=== PATIENT | female | born 1950 | race Caucasian/White ===

== ENCOUNTER 2016-06-16 17:24 | Emergency (ER) | payer MEDICARE ==
[~2016-06-16] VITALS: Ht 160 cm; Wt 65.8 kg
[2016-06-16] MEDS ORDERED: CHLO25TA22 (17:57)
[2016-06-16] MEDS ORDERED: DOXE10CA29 (17:57)
[2016-06-16] MEDS ORDERED: LEVO150T6 (17:57)
[2016-06-16] MEDS ORDERED: INSU100V6 (17:57)
[2016-06-16] MEDS ORDERED: ENAL20TA (17:57)
[2016-06-16] MEDS ORDERED: D50KC (17:57)
[2016-06-16] MEDS ORDERED: FLUO20TA28 (17:57)
[2016-06-16] MEDS ORDERED: AMLO5TAB2 (17:57)
[2016-06-16] MEDS ORDERED: [UNRECOGNIZED DRUG - CODE] (17:57)
[2016-06-16] MEDS ORDERED: METO-333 (17:57)
[2016-06-16] MEDS ORDERED: OXYB5TAB9 (17:57)
[2016-06-16 18:19] LABS: BASOPHILS % (AUTO) 0 % (0-10); EOSINOPHILS # (AUTO) 0.1 10^3/uL (0.0-0.3); EOSINOPHILS % (AUTO) 1 % (0-10); LYMPHOCYTES # (AUTO) 3.2 X 10^3 (1.0-4.0); LYMPHOCYTES % (AUTO) 44 % (12-44); MEAN CORPUSCULAR HEMOGLOBIN 31 PG (25-34); MEAN CORPUSCULAR HGB CONC 35 G/DL (32-36); MEAN CORPUSCULAR VOLUME 90 FL (80-99); MONOCYTES # (AUTO) 0.6 X 10^3 (0.0-1.0); MONOCYTES % (AUTO) 8 % (0-12); NEUTROPHILS # (AUTO) 3.4 X 10^3 (1.8-7.8); NEUTROPHILS % (AUTO) 46 % (42-75); PLATELET COUNT 378 10^3/uL (130-400); RED BLOOD COUNT 4.33 10^6/uL (4.35-5.85); WHITE BLOOD COUNT 7.3 10^3/uL (4.3-11.0)
[2016-06-16 18:22] LABS: PROTHROMBIN TIME PATIENT 12.5 SEC (12.2-14.7)
--- NOTE | 2016-06-16 18:28 | ED General ---
General Chief Complaint: Dizziness/Syncope Stated Complaint: DIZZINESS,POSSIBLE LOW BLOOD SUGAR Nursing Triage Note: PT REPORTS SHE STARTED FEELING WEAK AND LIGHTHEADED APROX 4 HRS AGO. PT REPORTS SHE HAS HAD TROUBLE WITH HIGH BLOOD PRESSURE X 2 MONTHS AND HER PRIMARY DR IS CURRENTLY ADJUSTING HER MEDICATIONS. PT ALSO REPORTS SHE ATE A CANDY BAR AND ICE CREAM GLASS CALIBRATOR INCASE OF LOW BS. Nursing Sepsis Screen: No Definite Risk Source of Information: Patient History of Present Illness Time Seen by Provider: 18:00 Initial Comments PT ARRIVES VIA POV--DROVE SELF HERE STATES SHE "FELT WEIRD ALL DAY" "JUST FEELING BAD" "TIRED" --PT UNABLE TO ELABORATE ON HOW SHE FEELS "BAD"--JUST FEELS WEAK AND A LITTLE LIGHTHEADED STATES SHE LIVES IN [place] AND DROVE HERE TODAY TO VISIT HER MOTHER STATES SHE WAS AT THE STORE AND "JUST FELT REALLY BAD" STATES IT FELT LIKE HER BLOOD SUGAR WAS LOW--HAS NOT CHECKED HER BLOOD SUGAR TODAY, BUT ATE CANDY BAR AND ICE CREAM GLASS CALIBRATOR, AND FEELS A LITTLE BETTER. PT STATES SHE HAS BEEN EATING AND DRINKING TODAY, BUT NOT MUCH USUAL NO CHEST PAIN NO SHORTNESS OF BREATH NO PALPITATIONS NO HEADACHE NO VISION CHANGES, BUT DID WAKE UP THIS AM WITH SUBCONJUNCTIVAL BLEED TO MEDIAL ASPECT OF LEFT EYE--NO EYE PAIN, NO KNOWN INJURY NO NAUSEA/VOMITING/DIARRHEA OR ABDOMINAL PAIN NO URINARY SYMPTOMS NO URI SYMPTOMS PT STATES HER BP HAS BEEN WELL CONTROLLED FOR YEARS ON THE SAME MEDICATIONS AND DOSAGES, BUT THE LAST 2 MONTHS HAS BECOME VERY HIGH AND HER DR HAS MORE THAN DOUBLED HER MEDICATIONS IN THE LAST SEVERAL WEEKS--LAST ADJUSTMENT WAS 2-3 WEEKS AGO. Allergies and Home Medications Allergies Coded Allergies: metronidazole (Verified Allergy, Unknown, 06/16/16) Home Medications Amlodipine Besylate 5 Mg Tablet, #120 (Reported) Chlorthalidone 25 Mg Tablet, #30 (Reported) Doxepin HCl 10 Mg Capsule, #10 (Reported) Enalapril Maleate 20 Mg Tablet, #180 (Reported) Ergocalciferol (Vitamin D2) 50,000 Unit Capsule, #12 (Reported) Fluoxetine HCl 20 Mg Tablet, #90 (Reported) Insulin Glargine,Hum.rec.anlog 100 Unit/1 Ml Vial, #10 (Reported) Levothyroxine Sodium 150 Mcg Tablet, #90 (Reported) Metoprolol Tartrate 25 Mg Tablet, #120 (Reported) Oxybutynin Chloride 5 Mg Tablet, #180 (Reported) Constitutional: see HPI, No chills, No diaphoresis, dizziness, No fever, malaise, weakness EENTM: see HPI, No blurred vision, No double vision, No ear pain, No eye pain, No nose congestion, No throat pain Respiratory: no symptoms reported, No cough, No dyspnea on exertion, No orthopnea, No short of breath, No wheezing Cardiovascular: no symptoms reported, No chest pain, No edema, No palpitations , No syncope, No vascular heart diseas Gastrointestinal: no symptoms reported, No abdominal pain, No diarrhea, No loss of appetite, No nausea, No vomiting Genitourinary: no symptoms reported Musculoskeletal: no symptoms reported, No back pain, No neck pain Skin: no symptoms reported Psychiatric/Neurological: No Symptoms Reported, Denies Headache, Denies Numbness, Denies Paresthesia, Denies Seizure, Denies Tingling, Denies Tremors, Denies Weakness Hematologic/Lymphatic: No Symptoms Reported Immunological/Allergic: no symptoms reported Past Hperrft-Cwrofg-Zzkypo Hx Patient Social History Alcohol Use: Occasionally Uses Recreational Drug Use: No Smoking Status: Former Smoker (1 PPD, QUIT 1990) Type Used: Cigarettes Former Smoker/When Quit: Mar 27, 1990 Recent Foreign Travel: No Contact w/Someone Who Travel: No Recent Infectious Disease Expo: No Recent Hopitalizations: No Surgeries HX Surgeries: Yes (BPD ( BILIARY/PANCREATIC DIVERSION ) --INTESTINAL BYPASS FOR WEIGHT LOSS/BARIATRIC SURGERY, L KNEE, DNC) Surgeries: Abdominal, Appendectomy, Gallbladder, Tonsillectomy Respiratory Hx Respiratory Disorders: No Cardiovascular Hx Cardiac Disorders: Yes (PVC'S) Cardiac Disorders: Hypertension Neurological Hx Neurological Disorders: No Reproductive System Hx Reproductive Disorders: 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 Genitourinary Hx Genitourinary Disorders: Yes (BLADDER CONTROL ISSUES) Gastrointestinal Hx Gastrointestinal Disorders: No (INTESTINAL BYPASS) Musculoskeletal Hx Musculoskeletal Disorders: No Endocrine Hx Endocrine Disorders: Yes Endocrine Disorders: Diabetes, Insulin dep, Hypothyroidsim HEENT HX ENT Disorders: No Cancer Hx Cancer: No Psychosocial Hx Psychiatric Problems: Yes Behavioral Health Disorders: Anxiety, Depression Integumentary HX Skin/Integumentary Disorder: No Blood Transfusions Hx Blood Disorders: No Physical Exam Vital Signs Vital Sign - Last 12Hours 06/16/16 17:49 Temp 97.3 Pulse 62 Resp 18 B/P (MAP) 185/108 Pulse Ox 96 Capillary Refill : Less Than 3 Seconds General Appearance: No Apparent Distress, WD/WN HEENT: PERRL/EOMI, TMs Normal, Normal ENT Inspection, Pharynx Normal Neck: Full Range of Motion, Normal Inspection, Non Tender, Supple, No Carotid Bruit, No JVD Respiratory: Normal Breath Sounds, No Accessory Muscle Use, No Respiratory Distress Cardiovascular: Regular Rate, Rhythm, No Edema, No JVD, No Murmur, Normal Peripheral Pulses Gastrointestinal: Normal Bowel Sounds, No Organomegaly, No Pulsatile Mass, Non Tender, Soft Back: Normal Inspection, No CVA Tenderness, No Vertebral Tenderness Extremity: Normal Capillary Refill, Normal Inspection, Normal Range of Motion, Non Tender, No Calf Tenderness, No Pedal Edema Neurologic/Psychiatric: Alert, Oriented x3, No Motor/Sensory Deficits, Normal Mood/Affect, senior account executive II-XII Norm as Tested Skin: Normal Color, Warm/Dry Progress/Results/Core Measures Results/Orders Lab Results Laboratory Tests Test 06/16/16 17:33 06/16/16 17:40 06/16/16 19:03 Range/Units Glucometer 94 70-110 MG/DL White Blood Count 7.3 4.3-11.0 10^3/uL Red Blood Count 4.33 L 4.35-5.85 10^6/uL Hemoglobin 13.4 11.5-16.0 G/DL Hematocrit 39 35-52 % Mean Corpuscular Volume 90 80-99 FL Mean Corpuscular Hemoglobin 31 25-34 PG Mean Corpuscular Hemoglobin Concent 35 32-36 G/DL Red Cell Distribution Width 12.0 10.0-14.5 % Platelet Count 378 130-400 10^3/uL Mean Platelet Volume 10.0 7.4-10.4 FL Neutrophils (%) (Auto) 46 42-75 % Lymphocytes (%) (Auto) 44 12-44 % Monocytes (%) (Auto) 8 0-12 % Eosinophils (%) (Auto) 1 0-10 % Basophils (%) (Auto) 0 0-10 % Neutrophils # (Auto) 3.4 1.8-7.8 X 10^3 Lymphocytes # (Auto) 3.2 1.0-4.0 X 10^3 Monocytes # (Auto) 0.6 0.0-1.0 X 10^3 Eosinophils # (Auto) 0.1 0.0-0.3 10^3/uL Basophils # (Auto) 0.0 0.0-0.1 10^3/uL Prothrombin Time 12.5 12.2-14.7 SEC INR Comment 1.0 0.8-1.4 Activated Partial Thromboplast Time 28 24-35 SEC Sodium Level 138 135-145 MMOL/L Potassium Level 3.5 L 3.6-5.0 MMOL/L Chloride Level 104 98-107 MMOL/L Carbon Dioxide Level 24 21-32 MMOL/L Anion Gap 10 5-14 MMOL/L Blood Urea Nitrogen 13 7-18 MG/DL Creatinine 0.80 0.60-1.30 MG/DL Estimat Glomerular Filtration Rate > 60 BUN/Creatinine Ratio 16 Glucose Level 101 70-105 MG/DL Calcium Level 8.7 8.5-10.1 MG/DL Magnesium Level 1.8 1.8-2.4 MG/DL Total Bilirubin 0.8 0.1-1.0 MG/DL Aspartate Amino Transf (AST/SGOT) 50 H 5-34 U/L Alanine Aminotransferase (ALT/SGPT) 45 0-55 U/L Alkaline Phosphatase 132 40-136 U/L Total Creatine Kinase 76 29-168 U/L Creatine Kinase MB 1.5 <6.6 NG/ML Troponin I < 0.30 <0.30 NG/ML B-Type Natriuretic Peptide 181.9 H <100.0 PG/ML Total Protein 6.2 L 6.4-8.2 G/DL Albumin 3.6 3.2-4.5 G/DL Amylase Level 32 25-125 U/L Lipase < 4 L 8-78 U/L TSH [place] Testing 3.23 0.35-4.94 UIU/ML Urine Color YELLOW Urine Clarity SLIGHTLY CLOUDY Urine pH 5 5-9 Urine Specific [place] 1.010 L 1.016-1.022 Urine Protein 2+ H NEGATIVE Urine Glucose (UA) NEGATIVE NEGATIVE Urine Ketones NEGATIVE NEGATIVE Urine Nitrite POSITIVE H NEGATIVE Urine Bilirubin NEGATIVE NEGATIVE Urine Urobilinogen NORMAL NORMAL MG/DL Urine Leukocyte Esterase 2+ H NEGATIVE Urine RBC (Auto) 2+ H NEGATIVE Urine RBC NONE /HPF Urine WBC 25-50 H /HPF Urine Squamous Epithelial Cells 0-2 /HPF Urine Crystals NONE /LPF Urine Bacteria MODERATE H /HPF Urine Casts NONE /LPF Urine Mucus NEGATIVE /LPF Urine Culture Indicated YES My Orders Orders - BEATA TIDWELL DO Accucheck Stat ONCE (06/16/16 18:12) Saline Lock/Iv-Start (06/16/16 18:12) Ekg Tracing (06/16/16 18:12) Monitor-Rhythm Ecg Trace Only (06/16/16 18:12) Ct Head Wo (06/16/16 18:12) Amylase (06/16/16 18:12) BNP (06/16/16 18:12) Cbc With Automated Diff (06/16/16 18:12) Comprehensive Metabolic Panel (06/16/16 18:12) Creatine Kinase (06/16/16 18:12) Creatine Kinase Mb (06/16/16 18:12) Lipase (06/16/16 18:12) Magnesium (06/16/16 18:12) Protime With Inr (06/16/16 18:12) Partial Thromboplastin Time (06/16/16 18:12) Thyroid Analyzer (06/16/16 18:12) Troponin I (06/16/16 18:12) Ua Culture If Indicated (06/16/16 18:12) Chest Pa/Lat (2 View) (06/16/16 18:12) Urine Culture (06/16/16 19:03) Vital Signs/I&O Vital Sign - Last 12Hours 06/16/16 17:49 Temp 97.3 Pulse 62 Resp 18 B/P (MAP) 185/108 Pulse Ox 96 Blood Pressure Mean: 133 Diagnostic Imaging Comments ACUTE ABDOMEN XRAYS--NON-SPECIFIC BOWEL GAS PATTERN, POSSIBLE ENTERITIS CT HEAD--NO ACUTE PROCESS, CHRONIC APPEARING CHANGES PER RADIOLOGIST REPORTS @ 1925 Reviewed: Reviewed by Me Departure Impression Impression: Primary Impression: UTI (urinary tract infection) Additional Impression: IDDM (insulin dependent diabetes mellitus) Disposition: 01 HOME, SELF-CARE Condition: Stable Departure-Patient Inst. Referrals: NO,LOCAL PHYSICIAN (PCP/Family) Primary Care Physician Patient Instructions: Sick Day Management for Diabetics, Urinary Tract Infection, Adult (DC) Add. Discharge Instructions: LOTS OF CLEAR LIQUIDS--NO COFFEE, POP OR TEA CHECK YOUR BLOOD SUGAR 3 TIMES A DAY BEFORE EACH MEAL TAKE YOUR MEDICATIONS PRESCRIBED FOLLOW UP WITH YOUR DR NEXT WEEK FOR RECHECK RETURN TO ER IF SYMPTOMS WORSEN All discharge instructions reviewed with patient and/or family. Voiced understanding. Scripts Nitrofurantoin Monohyd/M-Cryst (Macrobid 100 mg Capsule) 100 Mg Capsule 100 MG PO BID, #20 CAP Prov: BEATA TIDWELL DO 06/16/16 BEATA TIDWELL DO Jun 16, 2016 18:28
[2016-06-16 18:34] LABS: ALANINE AMINOTRANSFERASE 45 U/L (0-55); ALBUMIN 3.6 G/DL (3.2-4.5); AMYLASE 32 U/L (25-125); ANION GAP 10 MMOL/L (5-14); ASPARTATE AMINO TRANSFERASE 50 U/L (5-34); BILIRUBIN,TOTAL 0.8 MG/DL (0.1-1.0); BLOOD UREA NITROGEN 13 MG/DL (7-18); BUN/CREATININE RATIO 16; CALCIUM 8.7 MG/DL (8.5-10.1); CARBON DIOXIDE 24 MMOL/L (21-32); CHLORIDE 104 MMOL/L (98-107); CREATINE KINASE 76 U/L (29-168); GFR ESTIMATED > 60; GLUCOSE 101 MG/DL (70-105); LIPASE < 4 U/L (8-78); MAGNESIUM 1.8 MG/DL (1.8-2.4); POTASSIUM 3.5 MMOL/L (3.6-5.0); SODIUM 138 MMOL/L (135-145); TOTAL PROTEIN 6.2 G/DL (6.4-8.2)
[2016-06-16 18:54] LABS: TROPONIN I < 0.30 NG/ML (<0.30)
[2016-06-16 19:10] LABS: BILIRUBIN,URINE NEGATIVE (NEGATIVE); KETONES,URINE NEGATIVE (NEGATIVE); LEUKOCYTE ESTERASE ,URINE 2+ (NEGATIVE); NITRITE,URINE POSITIVE (NEGATIVE); PH,URINE 5 (5-9); PROTEIN,URINE 2+ (NEGATIVE); UROBILINOGEN,URINE NORMAL (NORMAL)
--- NOTE | 2016-06-16 19:12 | Diagnostic Imaging Report ---
PROCEDURE: CT head without contrast. TECHNIQUE: Multiple contiguous axial images were obtained through the brain without the use of intravenous contrast. INDICATION: Confusion, nausea, and body tingling. COMPARISON: No comparison is available. FINDINGS: There is no CT demonstration of acute intracranial hemorrhage. There is no evidence of intracranial mass effect. Metcalf and white differentiation appears preserved. There is a small hypodensity demonstrated within the lateral and posterior aspect of the right putamen. This is of very low density and is favored to reflect a chronic remote lacunar infarct versus a mildly prominent perivascular space. There is no hydrocephalus. There is no abnormal extra-axial fluid collection. The basilar cisterns appear patent. Posterior fossa is unremarkable. Visualized portions of the mastoid air cells and paranasal sinuses are clear. The visualized portions of the orbital contents are unremarkable. There is no acute calvarial abnormality. IMPRESSION: 1. There is no CT evidence of an acute intracranial abnormality. 2. Small low-density focus within the posterior and lateral right-sided putamen is favored to reflect a chronic remote lacunar infarct versus a prominent perivascular space. Dictated by: Dictated on workstation # [id number]
--- NOTE | 2016-06-16 19:18 | Diagnostic Imaging Report ---
INDICATION: Weak lightheadedness for four hours, high blood pressure. COMPARISON STUDY: None. FINDINGS: Frontal and lateral views of the chest demonstrate heart size and vascularity to be normal. The left diaphragm is slightly elevated. No infiltrates or pleural effusions are present. There are some air-fluid levels in small bowel loops without dilatation, possible enteritis. IMPRESSION: There is some elevation of the left diaphragm with some air-fluid levels and nondilated small bowel loops. Possible enteritis. Dictated by: Dictated on workstation # [id number]
[2016-06-16 19:29] LABS: SQUAMOUS EPITHELIAL CELL,UR 0-2 /HPF; WBC,URINE 25-50 /HPF
[2016-06-16] MEDS ORDERED: NITR-65 PO (19:39)
[2016-06-16] MEDS ORDERED: cefTRIAXone INJECTION 1,000 MG in NS (IVPB) 50 ML IV ONE (19:45)
[2016-06-16 20:14] VITALS: BP 156/88
--- OUTSIDE RECORDS SUMMARY | 2016-06-19 10:36 | XMS REPORT ---
Author Author CASA LUCIA Organization [employer] Address Unknown Phone Unavailable Care Team Providers Care Agricultural Equipment Mechanic Name Role Phone CASA LUCIA CP Unavailable Allergies No Known Allergies Problems Problem Type Condition Code Onset Dates Condition Status Problem Body Mass Index 45.0-49.9, adult V85.42 Active Problem DM II [Diabetes mellitus type II] 250.00 Active Problem Obesity, NOS 278.00 Active Problem Malnutrition following gastrointestinal surgery 579.3 Active Problem Insomnia 780.52 Active Problem Hypercholesterolemia NOS 272.4 Active Problem HTN 401.9 Active Problem Hypothyroidism (acquired) 244.9 Active Problem Diabetes mellitus, Type 2, uncontrolled 250.02 Active Problem Depression with anxiety 300.4 Active Medications Medication Code System Code Instructions Start Date End Date Status Dosage fluoxetine [facility] 77052 20 mg orally once a day (in the morning) Jan 14, 2015 2-3 tab(s) Results No Known Results Summary Purpose eClinicalWorks Submission
--- OUTSIDE RECORDS SUMMARY | 2016-06-19 10:36 | XMS REPORT | Continuity of Care Document ---
Author Author [facility] Organization [facility] Address Unknown Phone Unavailable Care Team Providers Care Program Or Project Administrator Name Role Phone FryAnnalisa henry PCP [phone] Source Comments Some departments are not documenting in the electronic medical record. If you do not see the information that you expected, contact Release of Information in the Health Information Management department at [phone] for further assistance in locating additional records.[facility] Active Allergies and Adverse Reactions Allergen Noted Date Severity Reactions Comments Flagyl 12/04/2010 MENTAL STATUS CHANGES Current Medications Prescription Sig. Disp. Refills Start End Date Status Date pantoprazole DR(+) Take 40 mg by mouth Active (PROTONIX) 40 mg PO daily. tablet vancomycin (VANCOCIN) 125 Take 125 mg by mouth four Active mg PO capsule times daily. ATENOLOL PO Take by mouth. Active enalapril (VASOTEC) 2.5 Take 2.5 mg by mouth Active mg PO tablet daily. FLUOXETINE HCL (PROZAC Take by mouth. Active PO) insulin lispro(+) Inject into area(s) as Active (HUMALOG) 100 unit/mL SC directed three times injection daily before meals. INSULIN Inject into area(s) as Active GLARGINE,HUM.REC.ANLOG directed. (LANTUS SC) methylphenidate CR(+) Take 20 mg by mouth daily Active (RITALIN SR; METADATE ER; before breakfast. METHYLIN ER) 20 mg PO tablet PV W-O ISSA/FERROUS Take by mouth. Active FUMARATE/FA (M-VIT PO) INSULIN ASPART (NOVOLOG Inject into area(s) as Active SC) directed. Saccharomyces boulardii Take by mouth. Active (FLORASTOR) 250 mg PO Cap venlafaxine XR (EFFEXOR Take 37.5 mg by mouth Active XR) 37.5 mg PO capsule daily. Saccharomyces boulardii Take by mouth. Active (FLORASTOR) 250 mg PO Cap LEVOTHYROXINE SODIUM Take by mouth. Active (SYNTHROID PO) Active Problems Not on file Social History Tobacco Use Types Packs/Day Years Used Date Never Smoker Alcohol Use Drinks/Week oz/Week Comments Yes rare Last Filed Vital Signs Vital Sign Reading Time Taken Blood Pressure 175/93 12/04/2010 9:19 PM CDT Pulse 94 12/04/2010 3:41 PM CDT Temperature 36.7 C (98 F) 12/04/2010 3:41 PM CDT Respiratory Rate - - Height - - Weight - - Body Mass Index - - Oxygen Saturation 96% 12/04/2010 9:19 PM CDT Plan of Care Health Maintenance Due Date Last Done Comments Hepatitis C Screening 1950 Physical (Comprehensive) 12/19/1955 Exam Pertussis Vaccine 12/19/1959 Tetanus Vaccine 1965 Breast Cancer Screening 1988 Colorectal Cancer 1998 Screening Shingles Vaccine 2008 Osteoporosis Screening 2013 Prevnar/Pneumovax (#1) 2013 Influenza Vaccine 11/25/2016 Results from Last 3 Months Not on file
--- OUTSIDE RECORDS SUMMARY | 2016-06-19 10:36 | XMS REPORT ---
Author Author CASA LUCIA [facility] [employer] Address Unknown Phone Unavailable Care Team Providers Care Colors Custodian Name Role Phone CASA LUCIA CP Unavailable Allergies, Adverse Reactions, Alerts Substance Reaction Event Type metronidazole confusion Drug Allergy venlafaxin "knocks me out" Non Drug Allergy Problems Problem Type Condition ICD-9 Code Onset Dates Condition Status Problem Body [...] Active Problem Depression with anxiety 300.4 Active Assessment Ganglion cyst, unspecified 727.40 Active Assessment HTN 401.9 Active Assessment Diabetes mellitus, Type 2, uncontrolled 250.02 Active Assessment Hypercholesterolemia NOS 272.4 Active Assessment Chest pain, unspecified 786.50 Active Medications Medication Code System Code Instructions Start Date End Date Status Dosage Melquin-3 NDC 1795 applied topically 2 times a day prn June 26, 2014 1 orquidea Fluoxetine Hydrochloride NDC 34887 20 mg orally once a day May 20, 2014 1 cap(s) Insulin Syringe NDC 0 0.5 ml, 29 gauge 5/16 inch needle subcutaneously once daily for insulin injection use as directed Novolog Flex pen NDC 0 Sliding Scale enalapril NDC 84180 20 mg orally once a day 1 tab(s) oxybutynin NDC 43929 5 mg orally twice daily 1 tab(s) cholestyramine NDC 28903 4 g/5 g orally 1 times a day 1 packet PEN NEEDLE SHORT NDC 0 as directed CPAP NDC 0 as directed Lantus NDC 97669 100 units/mL subcutaneously once daily at bedtime 12 units hydroquinone topical NDC 67407 4% applied topically 2 times a day September 26, 2012 1 orquidea Pen Needle NDC 0 29 G x 1/2in Use as directed as directed Nexium NDC 85473 20 mg orally once a day June 17, 2014 1 cap(s) levothyroxine NDC 44970 150 mcg (0.15 mg) orally once a day August 14, 2013 1 tab(s) One Touch Delica Lancets NDC 0 - - use as directed - potassium chloride NDC 61086 10 mEq orally once a day May 28, 2014 2 tab(s) One Touch Ultra Test Strips NDC 0 fingerstick 4 times daily_(before meals and bedtime) Test blood glucose amlodipine NDC 61883 5 mg orally once a day 1 tab(s) clobetasol topical NDC 18250 applied topically 2 times a day/PRN Mar 06, 2013 1 orquidea Procedures Procedure Coding System Code Date Office Visit, estab pt, Level 4 CPT-4 10593 September 12, 2014 Vital Signs Date/Time: September 12, 2014 BMI 31.60 Index Weight 179.8 lbs Height 63.25 in Pain Scale 2-3 stomach 0-10 Blood Pressure Diastolic 76 mm Hg Blood Pressure Systolic 117 mm Hg Results No Known Results Summary Purpose eClinicalWorks Submission
--- OUTSIDE RECORDS SUMMARY | 2016-06-19 10:36 | XMS REPORT ---
Author Author CASA LUCIA Organization [employer] Address Unknown Phone Unavailable Care Team Providers Care Cardroom Plastic Card Grader Name Role Phone CASA LUCIA CP Unavailable Allergies No Known Allergies Problems Problem Type Condition ICD-9 Code Onset Dates Condition Status Problem Obesity, NOS 278.00 Active Problem Body Mass Index 45.0-49.9, adult V85.42 Active Problem Insomnia 780.52 Active Problem Diabetes mellitus, Type 2, uncontrolled 250.02 Active Problem Malnutrition following gastrointestinal surgery 579.3 Active Problem Hypothyroidism (acquired) 244.9 Active Problem DM II [Diabetes mellitus type II] 250.00 Active Problem Depression with anxiety 300.4 Active Problem HTN 401.9 Active Medications No Known Medications Results No Known Results Summary Purpose [employer]ClinicalWorks Submission
--- OUTSIDE RECORDS SUMMARY | 2016-06-19 10:36 | XMS REPORT ---
Author Author CASA LUCIA Organization [employer] Address Unknown Phone Unavailable Care Team Providers Care Pharmacy Clinical Coordinator Name Role Phone CASA LUCIA CP Unavailable [...] Problem Depression with anxiety 300.4 Active Medications No Known Medications Results No Known Results Summary Purpose [employer]ClinicalWorks Submission
--- OUTSIDE RECORDS SUMMARY | 2016-06-19 10:36 | XMS REPORT ---
Author Author CASA LUCIA [facility] e[employer] Address Unknown Phone Unavailable Care Team Providers Care Fine Arts Teacher Name Role Phone CASA LUCIA CP Unavailable [...] Problem Depression with anxiety 300.4 Active Assessment HTN 401.9 Active Assessment Diabetes mellitus, Type 2, uncontrolled 250.02 Active Assessment Insomnia 780.52 Active Assessment Chest pain, unspecified 786.50 Active Medications Medication Code System Code Instructions Start Date End Date Status Dosage amlodipine NDC 14454 5 mg orally once a day 1 tab(s) PEN NEEDLE SHORT NDC 0 as directed One Touch Delica Lancets NDC 0 - - use as directed - levothyroxine NDC 40876 150 orally once a day 1 tab(s) Lantus NDC 72760 100 units/mL subcutaneously once daily at bedtime 12 units oxybutynin NDC 93701 5 mg orally twice daily 1 tab(s) Fluoxetine Hydrochloride NDC 84993 20 mg orally once a day 1 cap(s ) clobetasol topical NDC 84890 applied topically 2 times a day/PRN Mar 06, 2013 1 orquidea Melquin-3 NDC 1795 applied topically 2 times a day prn June 26, 2014 1 orquidea potassium chloride NDC 46557 10 mEq orally once a day May 28, 2014 2 tab(s) Novolog Flex pen NDC 0 as needed Sliding Scale cholestyramine NDC 40905 4 g/5 g orally 1 times a day 1 packet Insulin Syringe NDC 0 0.5 ml, 29 gauge 5/16 inch needle subcutaneously once daily for insulin injection use as directed One Touch Ultra Test Strips NDC 0 fingerstick 4 times daily_(before meals and bedtime) Test blood glucose CPAP NDC 0 as directed enalapril NDC 30119 20 orally once a day 1 tab(s) Pen Needle NDC 0 29 G x 1/2in Use as directed as directed hydroquinone topical NDC 92991 4% applied topically 2 times a day September 26, 2012 1 orquidea zolpidem NDC 12803 5 mg orally once a day (at bedtime) as needed 1 /2 tab Procedures Procedure Coding System Code Date Office Visit, estab pt, Level 4 CPT-4 38854 Dec 02, 2014 Vital Signs Date/Time: Dec 02, 2014 Blood Pressure Diastolic 80 mm Hg Blood Pressure Systolic 143 mm Hg Weight 166.8 lbs Pain Scale 0 0-10 Results No Known Results Summary Purpose [employer]ClinicalWorks Submission
--- OUTSIDE RECORDS SUMMARY | 2016-06-19 10:36 | XMS REPORT ---
Author Author CASA LUCIA Organization [employer] Address Unknown Phone Unavailable Care Team Providers Care Casino Games Dealer Name Role Phone CASA LUCIA CP Unavailable Allergies No Known Allergies Problems Problem Type Condition ICD-9 Code Onset Dates Condition Status Assessment Hypokalemia 276.8 Active Problem Obesity, NOS 278.00 Active Problem Body Mass Index 45.0-49.9, adult V85.42 Active Problem Insomnia 780.52 Active Problem Diabetes mellitus, Type 2, uncontrolled 250.02 Active Problem Malnutrition following gastrointestinal surgery 579.3 Active Problem Hypothyroidism (acquired) 244.9 Active Problem DM II [Diabetes mellitus type II] 250.00 Active Problem Depression with anxiety 300.4 Active Problem HTN 401.9 Active Medications Medication Code System Code Instructions Start Date End [place] D[place] [address] 10 mEq orally 2 times a day May 28, 2014 2 tab(s) Results No Known Results Summary Purpose [employer]ClinicalWorks Submission
--- OUTSIDE RECORDS SUMMARY | 2016-06-19 10:36 | XMS REPORT ---
Author Author CASA LUCIA Organization [employer] Address Unknown Phone Unavailable Care Team Providers Care Facilities Maintenance Assistant Name Role Phone CASA LUCIA CP Unavailable [...]
--- OUTSIDE RECORDS SUMMARY | 2016-06-19 10:36 | XMS REPORT ---
Author Author CASA LUCIA Organization [employer] Address Unknown Phone Unavailable Care Team Providers Care Labourers Name Role Phone CASA LUCIA CP Unavailable [...]
--- OUTSIDE RECORDS SUMMARY | 2016-06-19 10:36 | XMS REPORT ---
Author Author CASA LUCIA Organization [employer] Address Unknown Phone Unavailable Care Team Providers Care Portrait Consultant Name Role Phone CASA LUCIA CP Unavailable [...] Instructions Start Date End Date Status Dosage Nexium NDC 38533 40 mg orally once a day May 04, 2014 1 cap(s) Results No Known Results Summary Purpose [employer]Works Submission
--- OUTSIDE RECORDS SUMMARY | 2016-06-19 10:36 | XMS REPORT ---
Author Author CASA LUCIA Organization [employer] Address Unknown Phone Unavailable Care Team Providers Care Order Tracer Name Role Phone CASA LUCIA CP Unavailable [...]
--- OUTSIDE RECORDS SUMMARY | 2016-06-19 10:36 | XMS REPORT ---
Author Author CASA LUCIA Organization e[employer] Address Unknown Phone Unavailable Care Team Providers Care Director Of Rehabilitative Services Name Role Phone CASA LUCIA CP Unavailable Allergies No Known Allergies Problems Problem Type Condition Code Onset Dates Condition Status Problem Obesity, [...] Instructions Start Date End Date Status Dosage oxybutynin [facility] [address]1959 5 mg orally twice daily 1 tab(s) Results No Known Results Summary Purpose eClinicalWorks Submission
--- OUTSIDE RECORDS SUMMARY | 2016-06-19 10:36 | XMS REPORT ---
Author Author CASA LUCIA Organization [employer] Address Unknown Phone Unavailable Care Team Providers Care Marzipan Molder Name Role Phone CASA LUCIA CP Unavailable [...]
--- OUTSIDE RECORDS SUMMARY | 2016-06-19 10:38 | XMS REPORT ---
Author Author CASA LUCIA Organization [employer] Address Unknown Phone Unavailable Care Team Providers Care Design Technician Name Role Phone CASA LUCIA CP Unavailable [...] Start Date End Date Status Dosage fluoxetine [facility] 32697 60 mg orally once a day (in the morning) Jan 14, 2015 1 tab(s) Results No Known Results Summary Purpose eClinicalWorks Submission
--- OUTSIDE RECORDS SUMMARY | 2016-06-19 10:38 | XMS REPORT ---
Author Author CASA LUCIA [facility] eClinical[employer] Address Unknown Phone Unavailable Care Team Providers Care Electronic Parts Designer Name Role Phone CASA LUCIA CP Unavailable [...] anxiety 300.4 Active Problem HTN 401.9 Active Assessment Depression with anxiety 300.4 Active Assessment Malnutrition following gastrointestinal surgery 579.3 Active Assessment DM II [Diabetes mellitus type II] 250.00 Active Assessment HTN 401.9 Active Medications Medication Code System Code Instructions Start Date End Date Status Dosage levothyroxine NDC 44936 150 mcg (0.15 mg) orally once a day August 14, 2013 1 tab(s) Insulin Syringe NDC 0 0.5 ml, 29 gauge 5/16 inch needle subcutaneously once daily for insulin injection use as directed hydroquinone topical NDC 38592 4% applied topically 2 times a day September 26, 2012 1 orquidea Nexium NDC 34963 20 mg orally once a day June 17, 2014 1 cap(s) CPAP NDC 0 as directed Fluoxetine Hydrochloride NDC 62353 20 mg orally once a day May 20, 2014 1 cap(s) Novolog Flex pen NDC 0 5 units 3 times daily with meals One Touch Delica Lancets NDC 0 - - use as directed - cholestyramine NDC 93892 4 g/5 g orally 1 times a day 1 packet oxybutynin NDC 70384 5 mg orally BID 1 tab(s) enalapril NDC 33892 20 mg orally once a day 2 pills Lantus NDC 87784 100 units/mL subcutaneously once daily at bedtime 25 units amlodipine NDC 59709 5 mg orally once a day 1 tab(s) One Touch Ultra Test Strips NDC 0 fingerstick 4 times daily_(before meals and bedtime) Test blood glucose potassium chloride NDC 66920 10 mEq orally once a day May 28, 2014 2 tab(s) PEN NEEDLE SHORT NDC 0 as directed Pen Needle NDC 0 29 G x 1/2in Use as directed as directed clobetasol topical NDC 18989 applied topically 2 times a day/PRN Mar 06, 2013 1 orquidea Procedures Procedure Coding System Code Date Office Visit, delicia pt, Level 3 CPT-4 36377 June 17, 2014 Vital Signs Date/Time: June 17, 2014 Blood Pressure Diastolic 78 mm Hg Blood Pressure Systolic 122 mm Hg Weight 202.2 lbs Pain Scale 0/10 0-10 Results No Known Results Summary Purpose eClinicalWorks Submission
--- OUTSIDE RECORDS SUMMARY | 2016-06-19 10:38 | XMS REPORT ---
Author Author CASA LUCIA Organization [employer] Address Unknown Phone Unavailable Care Team Providers Care Ornament Stitcher Name Role Phone CASA LUCIA CP Unavailable [...] Date End Date Status Dosage Nexium NDC 32583 40 mg orally once a day May 04, 2014 1 cap(s) Results No Known Results Summary Purpose eClinicalWorks Submission
--- OUTSIDE RECORDS SUMMARY | 2016-06-19 10:38 | XMS REPORT ---
Author Author CASA LUCIA Organization [employer] Address Unknown Phone Unavailable Care Team Providers Care Order Processing Specialist Name Role Phone CASA LUCIA CP Unavailable Allergies No Known Allergies Problems Problem Type Condition ICD-9 Code Onset Dates Condition Status Assessment Hypothyroidism (acquired) 244.9 Active Problem Obesity, NOS 278.00 Active Problem [...] Start Date End Date Status Dosage levothyroxine [facility] [address]37[address] 150 mcg (0.15 mg) orally once a day August 14, 2013 1 tab(s) Results No Known Results Summary Purpose eClinicalWorks Submission
--- OUTSIDE RECORDS SUMMARY | 2016-06-19 10:38 | XMS REPORT ---
Author Author CASA LUCIA Organization [employer] Address Unknown Phone Unavailable Care Team Providers Care Cinder Block Mason Name Role Phone CASA LUCIA CP Unavailable [...]
--- OUTSIDE RECORDS SUMMARY | 2016-06-19 10:38 | XMS REPORT ---
Author Author CASA LUCIA Organization [employer] Address Unknown Phone Unavailable Care Team Providers Care Computer Graphics Illustrator Name Role Phone CASA LUCIA CP Unavailable Allergies No Known Allergies Problems Problem Type Condition ICD-9 Code Onset Dates Condition Status Assessment Depression NEC 311 Active Problem Obesity, NOS 278.00 Active Problem [...] Instructions Start Date End Date Status Dosage Fluoxetine Hydrochloride [facility] 51008 20 mg orally once a day May 20, 2014 1 cap(s) Results No Known Results Summary Purpose eClinicalWorks Submission
--- OUTSIDE RECORDS SUMMARY | 2016-06-19 10:38 | XMS REPORT ---
Author Author CASA LUCIA Organization [employer] Address Unknown Phone Unavailable Care Team Providers Care Cotton Classer Aide Name Role Phone CASA LUCIA CP Unavailable [...] End Date Status Dosage Melquin-3 NDC 1795 3% applied topically 2 times a day June 26, 2014 1 orquidea Results No Known Results Summary Purpose eClinicalWorks Submission
--- OUTSIDE RECORDS SUMMARY | 2016-06-19 10:38 | XMS REPORT ---
Author Author CASA LUCIA Organization [employer] Address Unknown Phone Unavailable Care Team Providers Care Paper Slitter Name Role Phone CASA LUCIA CP Unavailable Allergies No Known Allergies Problems Problem Type Condition ICD-9 Code Onset Dates Condition Status Assessment Thrombocytopenia, unspecified 287.5 Active Problem Obesity, NOS 278.00 Active Problem [...]
--- OUTSIDE RECORDS SUMMARY | 2016-06-19 10:39 | XMS REPORT ---
Author Author CASA LUCIA Organization [employer] Address Unknown Phone Unavailable Care Team Providers Care Skin Installer Name Role Phone CASA LUCIA CP Unavailable [...]
--- OUTSIDE RECORDS SUMMARY | 2016-06-19 10:39 | XMS REPORT ---
Author Author CASA LUCIA Organization [employer] Address Unknown Phone Unavailable Care Team Providers Care Director Adult Name Role Phone CASA LUCIA CP Unavailable [...] Start Date End Date Status Dosage amlodipine [facility] 45690 5 mg orally once a day 1 tab(s) Results No Known Results Summary Purpose eClinicalWorks Submission
--- OUTSIDE RECORDS SUMMARY | 2016-06-19 10:39 | XMS REPORT ---
Author Author CASA LUCIA Organization [employer] Address Unknown Phone Unavailable Care Team Providers Care Recycling Assistant Name Role Phone CASA LUCIA CP [...] Instructions Start Date End Date Status Dosage enalapril [facility] [address]04 20 mg orally once a day October 03, 2014 2 pills Results No Known Results Summary Purpose eClinicalWorks Submission
--- OUTSIDE RECORDS SUMMARY | 2016-06-19 10:39 | XMS REPORT ---
Author Author CASA LUCIA Organization [employer] Address Unknown Phone Unavailable Care Team Providers Care Smooth And Burr Worker Composites Name Role Phone CASA LUCIA CP Unavailable Allergies No Known Allergies Problems Problem Type Condition ICD-9 Code Onset Dates Condition Status Problem Body Mass Index 45.0-49.9, adult V85.42 Active Problem DM II [Diabetes mellitus type II] 250.00 Active Problem Obesity, NOS 278.00 Active Assessment Hypokalemia 276.8 Active Problem Malnutrition following gastrointestinal surgery 579.3 Active Problem Insomnia 780.52 Active Problem Hypercholesterolemia NOS 272.4 Active Problem HTN 401.9 Active Problem Hypothyroidism (acquired) 244.9 Active Problem Diabetes mellitus, Type 2, uncontrolled 250.02 Active Problem Depression with anxiety 300.4 Active Medications No Known Medications Results No Known Results Summary Purpose eClinicalWorks Submission
--- OUTSIDE RECORDS SUMMARY | 2016-06-19 10:39 | XMS REPORT ---
Author Author CASA LUCIA Organization e[employer] Address Unknown Phone Unavailable Care Team Providers Care Research Associate Professor Name Role Phone CASA LUCIA CP Unavailable [...] Instructions Start Date End Date Status Dosage doxepin [facility] [address]129 6 mg orally once a day (at bedtime) May 26, 2014 1 tab(s) Results No Known Results Summary Purpose eClinicalWorks Submission
== END 2016-06-16 20:14 | disposition home or self-care (01) ==
LOC: ER 17:27
DX: N30.91 Cystitis, unspecified with hematuria (principal); E11.9 Type 2 diabetes mellitus without complications; Z79.4 Long term (current) use of insulin; Z87.891 Personal history of nicotine dependence
CPT/HCPCS: 36415; 70450; 71020; 80053; 81000; 82150; 82550; 82553; 82962; 83690; 83735; 83880; 84443; 84484; 85025; 85610; 85730; 87088; 93005; 96365